=== PATIENT | female | born 1965 | race Caucasian/White ===

== ENCOUNTER 2022-02-05 00:10 | Emergency (ER) | payer OTHER ==
[2022-02-05] MEDS ORDERED: solu-MEDROL 125 MG, Sterile H2O 10 ml 2 ML IV ONE ×2 (00:25)
[2022-02-05] MEDS ORDERED: DUONEB 0.5-3 MG/3 ml Neb IH ONE ×2 (00:25→00:40)
[2022-02-05] MEDS ORDERED: HYDROCODONE-ACETAMIN 2.5-108/5 ML SOLUTION PO STA (00:26)
--- NOTE | 2022-02-05 00:28 | ERPHSYRPT ---
- History of Present Illness Time Seen by Provider: 02/05/22 00:14 Source: patient Exam Limitations: no limitations Physician History: 56 years old female with history of anxiety depression presented to the ER with chief complaint of cough since yesterday. Patient reported initially it was a dry hacking cough and today started to have productive of clear to yellow sputum moderate in amount. She is having coughing spells and feels short of breath. She did use her inhaler with no significant relief. Denies any chest pain or palpitations. No fever chills or sick contact reported. Timing/Duration: yesterday, gradual onset, worse Cough Quality/Degree: moderate, dry cough, productive cough, sputum Possible Cause: unknown cause Modifying Factors: Improves With: albuterol inhaler. Worsens With: coughing Associated Symptoms: cough, nasal congestion, nasal drainage, shortness of breath, sinus infection, sore throat, wheezing, No fever, No chest pain/soreness Allergies/Adverse Reactions: No Known Drug Allergies Allergy (Unverified 02/05/22 00:11) - Review of Systems Constitutional: No Symptoms Eyes: No Symptoms Ears, Nose, & Throat: Nose Congestion, Sinus Drainage Respiratory: Cough, Dyspnea, Wheezing Cardiac: No Symptoms Abdominal/Gastrointestinal: No Symptoms Genitourinary Symptoms: No Symptoms Musculoskeletal: No Symptoms Skin: No Symptoms Neurological: Headache Psychological: No Symptoms Endocrine: No Symptoms Hematologic/Lymphatic: No Symptoms - Nursing Vital Signs Nursing Vital Signs: Initial Vital Signs Temperature 97.9 F 02/05/22 00:11 Pulse Rate 116 H 02/05/22 00:11 Respiratory Rate 24 02/05/22 00:11 Blood Pressure 160/110 02/05/22 00:11 O2 Sat by Pulse Oximetry 95 02/05/22 00:11 Pain Scale Pain Intensity 4 - Physical Exam General Appearance: no apparent distress, alert Eye Exam: PERRL/EOMI, eyes nml inspection Ears, Nose, Throat Exam: TMs normal, pharyngeal erythema Neck Exam: normal inspection, supple, full range of motion Respiratory Exam: wheezing, No respiratory distress, No accessory muscle use Cardiovascular Exam: normal heart sounds, tachycardia Gastrointestinal/Abdomen Exam: soft, No tenderness Back Exam: normal inspection, normal range of motion Extremity Exam: normal inspection, normal range of motion Neurologic Exam: alert, oriented x 3, cooperative Skin Exam: normal color SpO2 Interpretation: normal SpO2: 97 O2 Delivery: Room Air - Course EKG Interpreted by Me: RATE ([id number]), Sinus Tach, NORMAL AXIS, NORMAL INTERVALS, NORMAL QRS Ordered Tests: Medication Summary Discontinued Medications Generic Name Dose Route Start Last Admin Trade Name [place] PRN Reason Stop Dose Admin Acetaminophen 650 mg 02/05/22 04:22 02/05/22 04:25 Acetaminophen 325 Mg Tablet PO 02/05/22 04:23 650 mg STAT STA Administration Acetaminophen Confirm 02/05/22 04:25 Acetaminophen 325 Mg Tablet Administered 02/05/22 04:26 Dose 650 mg .ROUTE .STK-MED ONE Hydrocodone Bitart/Acetaminophen 10 ml 02/05/22 00:26 02/05/22 00:38 Hydrocodone/Acetaminophen 5 Ml Udcup PO 02/05/22 00:27 10 ml STAT STA Administration Hydrocodone Bitart/Acetaminophen Confirm 02/05/22 00:34 Hydrocodone/Acetaminophen 5 Ml Udcup Administered 02/05/22 00:35 Dose 10 ml .ROUTE .STK-MED ONE Albuterol/Ipratropium 3 ml 02/05/22 00:25 02/05/22 00:42 Ipratropium/Albuterol Sulfate 3 Ml Ampul.Neb IH 02/05/22 00:26 3 ml STAT ONE Administration Albuterol/Ipratropium Confirm 02/05/22 00:40 Ipratropium/Albuterol Sulfate 3 Ml Ampul.Neb Administered 02/05/22 00:41 Dose 3 ml IH .STK-MED ONE Methylprednisolone Sodium 0 mg 02/05/22 00:25 02/05/22 00:38 Succinate 125 mg/ Sterile IV 02/05/22 00:26 125 mg Water 2 ml STAT ONE Administration Levofloxacin/Dextrose 750 mg in 150 mls @ 100 mls/hr 02/05/22 00:46 02/05/22 02:41 Levofloxacin 750mg/150ml D5w IV 02/05/22 02:15 Infused STAT STA Infusion Levofloxacin/Dextrose Confirm 02/05/22 00:49 Levofloxacin 750mg/150ml D5w Administered 02/05/22 00:50 Dose 750 mg in 150 mls @ ud IV .STK-MED ONE Magnesium Sulfate/Dextrose 100 mls @ 100 mls/hr 02/05/22 01:30 02/05/22 01:43 Magnesium 1 Gm / 100 Ml D5w IV 02/05/22 03:29 100 mls/hr Q1H CORA Administration Magnesium Sulfate/Dextrose Confirm 02/05/22 01:41 Magnesium 1 Gm / 100 Ml D5w Administered 02/05/22 01:42 Dose 200 mls @ ud IV .STK-MED ONE Methylprednisolone Sodium Succinate Confirm 02/05/22 00:34 Methylprednis Sod Succ 125 Mg/2 Ml Vial Administered 02/05/22 00:35 Dose 125 mg .ROUTE .STK-MED ONE Oseltamivir Phosphate 75 mg 02/05/22 04:22 02/05/22 04:26 Oseltamivir 75 Mg Cap PO 02/05/22 04:23 75 mg STAT ONE Administration Oseltamivir Phosphate Confirm 02/05/22 04:24 Oseltamivir 75 Mg Cap Administered 02/05/22 04:25 Dose 75 mg PO .STK-MED ONE Sterile Water Confirm 02/05/22 00:34 Water For Injection,Sterile 10 Ml Vial Administered 02/05/22 00:35 Dose 10 ml IJ .STK-MED ONE Lab/Rad Data: Laboratory Result Diagrams 02/05/22 00:40 02/05/22 00:40 Laboratory Results 02/05/22 02/05/22 02/05/22 Range/Units 03:43 01:35 00:40 WBC (4.0-10.5) K/mm3 RBC (4.1-5.4) M/mm3 Hgb (12.0-16.0) gm/dl Hct (35-47) % MCV (78-100) fl MCH (26-32) pg MCHC (32-36) g/dl RDW (11.5-14.0) % Plt Count (150-450) K/mm3 MPV (7.5-11.0) fl Gran % (36.0-66.0) % Eos # (Auto) (0-0.5) Absolute Lymphs (auto) (1.0-4.6) Absolute Monos (auto) (0.0-1.3) Lymphocytes % (24.0-44.0) % Monocytes % (0.0-12.0) % Eosinophils % (0.00-5.0) % Basophils % (0.0-0.4) % Absolute Granulocytes (1.4-6.9) Basophils # (0-0.4) D-Dimer 787 H* (215-500) ng/mL Sodium (137-145) mmol/L Potassium (3.5-5.1) mmol/L Chloride (98-107) mmol/L Carbon Dioxide (22-30) mmol/L Anion Gap (5-15) MEQ/L BUN (7-17) mg/dL Creatinine (0.52-1.04) mg/dL Estimated GFR ML/MIN Glucose (74-106) mg/dL Lactic Acid (0.4-2.0) Calcium (8.4-10.2) mg/dL Magnesium (1.6-2.3) mg/dL Total Bilirubin (0.2-1.3) mg/dL AST (14-36) U/L ALT (0-35) U/L Alkaline Phosphatase (38-126) U/L Troponin I < 0.012 (0.000-0.034) ng/mL NT-Pro-B Natriuret Pep (0-900) pg/mL Serum Total Protein (6.3-8.2) g/dL Albumin (3.5-5.0) g/dL Influenza Type A Ag POSITIVE (NEGATIVE) Influenza Type B Ag NEGATIVE (NEGATIVE) RSV (PCR) NEGATIVE (Negative) SARS-CoV-2 (PCR) NEGATIVE (NEGATIVE) 02/05/22 02/05/22 02/05/22 Range/Units 00:40 00:40 00:40 WBC (4.0-10.5) K/mm3 RBC (4.1-5.4) M/mm3 Hgb (12.0-16.0) gm/dl Hct (35-47) % MCV (78-100) fl MCH (26-32) pg MCHC (32-36) g/dl RDW (11.5-14.0) % Plt Count (150-450) K/mm3 MPV (7.5-11.0) fl Gran % (36.0-66.0) % Eos # (Auto) (0-0.5) Absolute Lymphs (auto) (1.0-4.6) Absolute Monos (auto) (0.0-1.3) Lymphocytes % (24.0-44.0) % Monocytes % (0.0-12.0) % Eosinophils % (0.00-5.0) % Basophils % (0.0-0.4) % Absolute Granulocytes (1.4-6.9) Basophils # (0-0.4) D-Dimer (215-500) ng/mL Sodium 138 (137-145) mmol/L Potassium 4.1 (3.5-5.1) mmol/L Chloride 104 (98-107) mmol/L Carbon Dioxide 23 (22-30) mmol/L Anion Gap 14.4 (5-15) MEQ/L BUN 12 (7-17) mg/dL Creatinine 0.57 (0.52-1.04) mg/dL Estimated GFR > 60.0 ML/MIN Glucose 112 H (74-106) mg/dL Lactic Acid (0.4-2.0) Calcium 8.6 (8.4-10.2) mg/dL Magnesium 1.5 L (1.6-2.3) mg/dL Total Bilirubin 0.40 (0.2-1.3) mg/dL AST 25 (14-36) U/L ALT 17 (0-35) U/L Alkaline Phosphatase 108 (38-126) U/L Troponin I < 0.012 (0.000-0.034) ng/mL NT-Pro-B Natriuret Pep 112 (0-900) pg/mL Serum Total Protein 6.9 (6.3-8.2) g/dL Albumin 3.8 (3.5-5.0) g/dL Influenza Type A Ag (NEGATIVE) Influenza Type B Ag (NEGATIVE) RSV (PCR) (Negative) SARS-CoV-2 (PCR) (NEGATIVE) 02/05/22 02/05/22 Range/Units 00:40 00:25 WBC 7.5 (4.0-10.5) K/mm3 RBC 4.03 L (4.1-5.4) M/mm3 Hgb 12.2 (12.0-16.0) gm/dl Hct 38.4 (35-47) % MCV 95.3 (78-100) fl MCH 30.3 (26-32) pg MCHC 31.8 L (32-36) g/dl RDW 13.3 (11.5-14.0) % Plt Count 260 (150-450) K/mm3 MPV 9.5 (7.5-11.0) fl Gran % 72.0 H (36.0-66.0) % Eos # (Auto) 0.15 (0-0.5) Absolute Lymphs (auto) 0.88 L (1.0-4.6) Absolute Monos (auto) 1.04 (0.0-1.3) Lymphocytes % 11.8 L (24.0-44.0) % Monocytes % 13.9 H (0.0-12.0) % Eosinophils % 2.0 (0.00-5.0) % Basophils % 0.3 (0.0-0.4) % Absolute Granulocytes 5.37 (1.4-6.9) Basophils # 0.02 (0-0.4) D-Dimer (215-500) ng/mL Sodium (137-145) mmol/L Potassium (3.5-5.1) mmol/L Chloride (98-107) mmol/L Carbon Dioxide (22-30) mmol/L Anion Gap (5-15) MEQ/L BUN (7-17) mg/dL Creatinine (0.52-1.04) mg/dL Estimated GFR ML/MIN Glucose (74-106) mg/dL Lactic Acid 1.6 (0.4-2.0) Calcium (8.4-10.2) mg/dL Magnesium (1.6-2.3) mg/dL Total Bilirubin (0.2-1.3) mg/dL AST (14-36) U/L ALT (0-35) U/L Alkaline Phosphatase (38-126) U/L Troponin I (0.000-0.034) ng/mL NT-Pro-B Natriuret Pep (0-900) pg/mL Serum Total Protein (6.3-8.2) g/dL Albumin (3.5-5.0) g/dL Influenza Type A Ag (NEGATIVE) Influenza Type B Ag (NEGATIVE) RSV (PCR) (Negative) SARS-CoV-2 (PCR) (NEGATIVE) - Progress Progress: improved Air Movement: fair Progress Note: 02/05/22 04:56 She is given symptomatic treatment for cough, on reevaluation feeling better. EKG did not show any acute ischemic changes and negative troponins. Mildly low magnesium and given replacement. Given steroid and DuoNeb along with a dose of antibiotic. Has elevated D-dimers and CTA is negative for PE. She has a positive influenza A and started on Tamiflu. Patient is much better on reevaluation and no signs of distress and is being discharged with outpatient follow-up. Blood Culture(s) Obtained: No Antibiotics given: Yes Counseled pt/family regarding: lab results, diagnosis, need for follow-up, rad results - Departure Departure Disposition: Home Clinical Impression: Influenza A, Pneumonia, Hypomagnesemia Condition: Stable Critical Care Time: No Referrals: MANINDER GRANDE NP [Primary Care Provider] - Follow up/PCP as directed (1-2 days for re evaluation) Instructions: Flu, Adult (DC), Pneumonia, Adult (DC) Additional Instructions: increased hydration, tylenol/ibuprofen as needed for fever / bodyaches. follow up with PCP for re evaluation in 2 days . return to ER for wowrsening cough/Shortness of breath/persistent high grade fever etc. Prescriptions: Prednisone 20 mg [Deltasone 20 mg] 60 mg PO DAILY 3 Days #9 tablet Oseltamivir 75 mg [Tamiflu 75MG Capsule] 75 mg PO BID #9 cap Azithromycin 250 mg [Zithromax 250 MG TABLET] 250 mg PO ZPACK #6 tablet
[2022-02-05] MEDS ORDERED: Sterile H2O 10 ml IJ ONE (00:34)
[2022-02-05] MEDS ORDERED: HYDROCODONE-ACETAMIN 2.5-108/5 ML SOLUTION ONE (00:34)
[2022-02-05] MEDS ORDERED: solu-MEDROL ONE (00:34)
[2022-02-05] MEDS ORDERED: LEVOFLOXACIN 750MG/150ML D5W 750 MG/150 ML BAG IV STA (00:46)
[2022-02-05] MEDS ORDERED: LEVOFLOXACIN 750MG/150ML D5W 750 MG/150 ML BAG IV ONE (00:49)
[2022-02-05 00:53] LABS: Absolute Neutrophil Ct (ANC) 5.37 (1.4-6.9); Basophil (Absolute #) 0.02 (0-0.4); Eosinophil (Absolute #) 0.15 (0-0.5); Hematocrit 38.4 % (35-47); Hemoglobin 12.2 gm/dl (12.0-16.0); Lymphocyte (Absolute #) 0.88 (1.0-4.6); Lymphocytes % 11.8 % (24.0-44.0); Mean Cell Volume 95.3 fl (78-100); Mean Corpuscular Hemoglobin 30.3 pg (26-32); Mean Corpuscular Hgb Concent. 31.8 g/dl (32-36); Mean Platelet Volume 9.5 fl (7.5-11.0); Monocyte (Absolute #) 1.04 (0.0-1.3); Monocytes % 13.9 % (0.0-12.0); Platelet Count 260 K/mm3 (150-450); Red Blood Count 4.03 M/mm3 (4.1-5.4); Red Cell Distribution Width 13.3 % (11.5-14.0); White Blood Count 7.5 K/mm3 (4.0-10.5)
[2022-02-05 01:28] LABS: ALBUMIN 3.8 g/dL (3.5-5.0); ALKALINE PHOSPHATASE 108 U/L (38-126); ANION GAP 14.4 MEQ/L (5-15); BLOOD UREA NITROGEN 12 mg/dL (7-17); CHLORIDE 104 mmol/L (98-107); Calcium 8.6 mg/dL (8.4-10.2); Carbon Dioxide 23 mmol/L (22-30); Creatinine 1 0.57 mg/dL (0.52-1.04); EST GLOMERULAR FILTRATION RATE > 60.0 ML/MIN; Glucose 112 mg/dL (74-106); MAGNESIUM 1.5 mg/dL (1.6-2.3); Potassium 4.1 mmol/L (3.5-5.1); SGOT/AST 25 U/L (14-36); SGPT/ALT 17 U/L (0-35); SODIUM 138 mmol/L (137-145); Total Protein 6.9 g/dL (6.3-8.2)
[2022-02-05] MEDS ORDERED: Magnesium 1 Gm / 100 Ml D5W*** 200 ML IV ONE (01:41)
[2022-02-05] MEDS: Magnesium 1 Gm / 100 Ml D5W*** 100 ML IV SCH ×2 (01:41→01:43)
[2022-02-05 02:13] LABS: INFLUENZA B NEGATIVE (NEGATIVE); RESPIRATORY SYNCTIAL VIRUS NEGATIVE (Negative); SARS-CoV-2 Xpert Express NEGATIVE (NEGATIVE)
[2022-02-05 02:17] LABS: INFLUENZA A POSITIVE (NEGATIVE)
[2022-02-05] MEDS ORDERED: TYLENOL 325 MG PO STA (04:22)
[2022-02-05] MEDS ORDERED: Tamiflu 75MG Capsule PO ONE ×2 (04:22→04:24)
[2022-02-05] MEDS ORDERED: TYLENOL 325 MG ONE (04:25)
[2022-02-05 05:00] VITALS: BP 134/85; PULSE 96
[2022-02-05 05:01] VITALS: O2SAT 97
--- NOTE | 2022-02-05 07:10 | XRAY ---
Indication: Cough. Elevated d-dimer. Multiple contiguous axial images obtained through the chest using 100 cc Isovue 370 contrast and PE protocol. Comparison: None There is good opacification of the pulmonary arteries to include the lobar and segmental branches. No pulmonary embolus. Heart not enlarged. Aorta is normal in course and caliber. No pathologic mediastinal/hilar lymphadenopathy. Lungs demonstrates minimal bilateral dependent atelectasis. No suspicious pulmonary mass, infiltrate, effusion, or pneumothorax. Bony thorax intact. Limited upper abdomen demonstrates a few centimeter/subcentimeter mid posterior lymph nodes with mesenteric stranding favoring mesenteric adenitis. Incidental mild fatty liver and 1.7 cm gallstone. Impression: 1. Negative pulmonary embolus. No acute cardiopulmonary abnormalities. 2. Incidental small midabdomen mesenteric nodes with mesenteric stranding favoring mesenteric adenitis. 3. Incidental fatty liver and 1.7 cm gallstone. Comment: Preliminary interpretation made by [facility]. No critical discrepancy.
--- NOTE | 2022-02-05 07:12 | XRAY ---
Indication: Cough. Comparison: December 12, 2018. Portable chest remains clear. Heart not enlarged. Bony thorax intact. No new/acute findings.
== END 2022-02-05 05:09 | disposition home or self-care (01) ==
LOC: ED 00:10
DX: J10.00 Influenza due to other identified influenza virus with unspecified type of pneumonia (principal); E83.42 Hypomagnesemia; R05.1 Acute cough; R06.02 Shortness of breath; R09.81 Nasal congestion; J02.9 Acute pharyngitis, unspecified; F41.8 Other specified anxiety disorders; Z79.52 Long term (current) use of systemic steroids
CPT/HCPCS: 0241U; 36000; 36415; 71045; 71260; 80053; 83605; 83735; 83880; 84484; 85025; 85379; 93005; 94640; 96360; 96374; 99285; J1956; J2930; J3475; A9270-GY

== ENCOUNTER 2024-01-11 21:30 | Emergency (ER) | payer OTHER ==
[2024-01-11 22:03] VITALS: TEMP 98.5; O2SAT 97
--- NOTE | 2024-01-11 22:25 | ERPHSYRPT ---
- History of Present Illness Time Seen by Provider: 01/11/24 22:15 Source: patient Exam Limitations: no limitations Patient Subjective Stated Complaint: hypertension, fatigue Triage Nursing Assessment: pt ambulatory to bed by self with steady gait, pt alert and oriented x3, skin pwd, pt c/o htn and fatigue, bp was 200/100s at home prior to arrival, pt current bp is 179/103, pt was recently diagnosed with new onset a fib, pt has first appt with Dr. Mascorro on 01/03 and was prescribed metoprolol and eliquis, heart rate controlled at the time, pt denies any pain, pt has f/u appt on Sunday with Dr. Mascroro. Physician History: 58yo f presents via private vehicle for HTN and fatigue. Pt states she was at her sister's house seated at the kitchen table when she noticed that she was feeling fatigued. Pt states she decided to check her BP there and it was 170s systolic, which she states her BP has never been that high. 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 Pt currently denies any cp, vision changes, n/v, NAIK. Timing/Duration: today Severity: mild Associated Symptoms: No nausea, No vomiting, No abdominal pain, No chills, No chest pain, No fever, No headaches, No syncope Allergies/Adverse Reactions: No Known Drug Allergies Allergy (Unverified 02/05/22 00:11) Home Medications: Apixaban [Eliquis] 5 mg PO BID 01/11/24 [History] Estradiol [Estrace] 1 mg PO DAILY 01/11/24 [History] Metoprolol Tartrate 25 mg [Lopressor 25MG Tab] 25 mg PO BID 01/11/24 [History] Tirzepatide [Mounjaro] 12.5 mg SQ WEEKLY 01/11/24 [History] Zolpidem Tartrate 10 mg [Ambien 10 MG] 10 mg PO DAILY 01/11/24 [History] Hx Tetanus, Diphtheria Vaccination/Date Given: No Hx Influenza Vaccination/Date Given: No Hx Pneumococcal Vaccination/Date Given: No Immunizations Up to Date: No Travel Risk - International Travel Have you traveled outside of the country in past 3 weeks: No - Emerging Infectious Disease Are you exhibiting symptoms associated with any current EIDs: No - Review of Systems Constitutional: Fatigue Respiratory: No Symptoms Cardiac: No Symptoms Abdominal/Gastrointestinal: No Symptoms Neurological: No Symptoms - Past Medical History Pertinent Past Medical History: Yes Neurological History: Migraines ENT History: No Pertinent History Cardiac History: Arrhythmia Respiratory History: No Pertinent History Endocrine Medical History: No Pertinent History Musculoskeletal History: No Pertinent History GI Medical History: Esophageal Disorder, GERD History: No Pertinent History Psycho-Social History: Depression Female Reproductive Disorders: No Pertinent History Other Medical History: afib - Past Surgical History Past Surgical History: Yes Neuro Surgical History: No Pertinent History Cardiac: No Pertinent History Respiratory: No Pertinent History Gastrointestinal: Other Genitourinary: No Pertinent History Musculoskeletal: Orthopedic Surgery Female Surgical History: Hysterectomy Other Surgical History: ESOPHAGEAL STRETCHED - Social History Smoking Status: Never smoker Exposure to second hand smoke: No Drug Use: none Patient Lives Alone: No - Nursing Vital Signs Nursing Vital Signs: Initial Vital Signs Temperature 98.5 F 01/11/24 21:47 Pulse Rate 99 H 01/11/24 21:47 Respiratory Rate 19 01/11/24 21:47 Blood Pressure 179/103 01/11/24 21:47 O2 Sat by Pulse Oximetry 97 01/11/24 21:47 Pain Scale Pain Intensity 0 - Physical Exam General Appearance: no apparent distress, alert Eye Exam: PERRL/EOMI Respiratory Exam: normal breath sounds, lungs clear, airway intact, No chest tenderness, No respiratory distress Cardiovascular Exam: tachycardia, irregular, capillary refill <2 sec, No murmur, No edema Neurologic Exam: alert, oriented x 3, cooperative, 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, normal mood/affect, nml station & gait, sensation nml, No motor deficits, No sensory deficit SpO2 Interpretation: normal SpO2: 97 O2 Delivery: Room Air - Course EKG Interpreted by Me: RATE (91), A-fib, Other (no ST changes that would suggest ischemia; qtcb 467) Ordered Tests: Active Orders 24 hr Category Date Time Status EKG-ER Only STAT Care 01/11/24 22:25 Active IV Insertion STAT Care 01/11/24 22:30 Active CBC W DIFF Stat Lab 01/11/24 22:40 Completed CMP Stat Lab 01/11/24 22:40 Completed TROPONIN Q4H Lab 01/11/24 22:40 Completed TROPONIN Q4H Lab 01/12/24 02:30 Ordered TROPONIN Q4H Lab 01/12/24 06:30 Ordered TROPONIN Stat Lab 01/12/24 00:34 Received Medication Summary Discontinued Medications Generic Name Dose Route Start Last Admin Trade Name Freq PRN Reason Stop Dose Admin Sodium Chloride 1,000 mls @ 999 mls/hr 01/11/24 22:25 01/11/24 22:42 Sodium Chloride 0.9% 1000 Ml IV 01/11/24 23:25 Not Given .Q1H1M STA Lab/Rad Data: Laboratory Result Diagrams 01/11/24 22:40 01/11/24 22:40 Laboratory Results 01/11/24 01/11/24 01/11/24 Range/Units 22:45 22:40 22:40 WBC (4.0-10.5) x10^3/uL RBC (4.1-5.4) x10^6/uL Hgb (12.0-16.0) g/dL Hct (35-47) % MCV (78-100) fL MCH (26-32) pg MCHC (32-36) g/dL RDW (11.5-14.0) % Plt Count (150-450) x10^3/uL MPV (7.5-11.0) fL Gran % (36.0-66.0) % Immature Gran % (Auto) (0.00-0.4) % Nucleat RBC Rel Count (0.00-0.1) % Eos # (Auto) (0-0.5) x10^3/uL Immature Gran # (Auto) (0.00-0.03) x10^3u/L Absolute Lymphs (auto) (1.0-4.6) x10^3/uL Absolute Monos (auto) (0.0-1.3) x10^3/uL Absolute Nucleated RBC (0.00-0.01) x10^3u/L Lymphocytes % (24.0-44.0) % Monocytes % (0.0-12.0) % Eosinophils % (0.00-5.0) % Basophils % (0.0-0.4) % Absolute Granulocytes (1.4-6.9) x10^3/uL Basophils # (0-0.4) x10^3/uL Sodium 139 (135-145) mmol/L Potassium 3.7 (3.5-5.1) mmol/L Chloride 109 H (98-107) mmol/L Carbon Dioxide 25 (22-30) mmol/L Anion Gap 9.0 (5-15) MEQ/L BUN 14 (7-17) mg/dL Creatinine 0.46 L (0.52-1.04) mg/dL Estimated GFR 112.2 ML/MIN Glucose 125 H (74-106) mg/dL Calcium 8.4 (8.4-10.2) mg/dL Total Bilirubin 0.40 (0.2-1.3) mg/dL AST 20 (14-36) U/L ALT 20 (0-35) U/L Alkaline Phosphatase 101 (38-126) U/L Troponin I < 0.012 (0.000-0.034) ng/mL Serum Total Protein 6.1 L (6.3-8.2) g/dL Albumin 3.2 L (3.5-5.0) g/dL Influenza Type A Ag NEGATIVE (NEGATIVE) Influenza Type B Ag NEGATIVE (NEGATIVE) RSV (PCR) NEGATIVE (NEGATIVE) SARS-CoV-2 (PCR) NEGATIVE (NEGATIVE) 01/11/24 Range/Units 22:40 WBC 9.6 (4.0-10.5) x10^3/uL RBC 4.00 L (4.1-5.4) x10^6/uL Hgb 11.8 L (12.0-16.0) g/dL Hct 37.1 (35-47) % MCV 92.8 (78-100) fL MCH 29.5 (26-32) pg MCHC 31.8 L (32-36) g/dL RDW 13.1 (11.5-14.0) % Plt Count 270 (150-450) x10^3/uL MPV 9.5 (7.5-11.0) fL Gran % 48.1 (36.0-66.0) % Immature Gran % (Auto) 0.2 (0.00-0.4) % Nucleat RBC Rel Count 0.0 (0.00-0.1) % Eos # (Auto) 0.14 (0-0.5) x10^3/uL Immature Gran # (Auto) 0.02 (0.00-0.03) x10^3u/L Absolute Lymphs (auto) 3.88 (1.0-4.6) x10^3/uL Absolute Monos (auto) 0.90 (0.0-1.3) x10^3/uL Absolute Nucleated RBC 0.00 (0.00-0.01) x10^3u/L Lymphocytes % 40.4 (24.0-44.0) % Monocytes % 9.4 (0.0-12.0) % Eosinophils % 1.5 (0.00-5.0) % Basophils % 0.4 (0.0-0.4) % Absolute Granulocytes 4.63 (1.4-6.9) x10^3/uL Basophils # 0.04 (0-0.4) x10^3/uL Sodium (135-145) mmol/L Potassium (3.5-5.1) mmol/L Chloride (98-107) mmol/L Carbon Dioxide (22-30) mmol/L Anion Gap (5-15) MEQ/L BUN (7-17) mg/dL Creatinine (0.52-1.04) mg/dL Estimated GFR ML/MIN Glucose (74-106) mg/dL Calcium (8.4-10.2) mg/dL Total Bilirubin (0.2-1.3) mg/dL AST (14-36) U/L ALT (0-35) U/L Alkaline Phosphatase (38-126) U/L Troponin I (0.000-0.034) ng/mL Serum Total Protein (6.3-8.2) g/dL Albumin (3.5-5.0) g/dL Influenza Type A Ag (NEGATIVE) Influenza Type B Ag (NEGATIVE) RSV (PCR) (NEGATIVE) SARS-CoV-2 (PCR) (NEGATIVE) - Progress Progress: improved Progress Note: 01/12/24 00:00 pt re-examined, lab workup largely unremarkable ekg showed afib, rate controlled pt resting comfortably, states she feels tired but otherwise is asymptomatic most recent bp 142/93 01/12/24 01:26 received call from lab stating machine that runs troponin labs is down, they are unable to run pt's 2nd trop I discussed lab issue w/ pt who is requesting to leave, I believe that is appropriate at this time given controlled bp, absence of cardiac sx, largely unremarkable lab w/u Pt fatigue likely related to medication side effect after recently starting beta jimmy Pt has appt scheduled w/ warehouse assembly worker Dr Rebolledo on 01/14/24 Plan for dc home Instructed to return to ED if: cp develops, change in mental status, NAIK devel ops, vision changes develop, begin to have nausea/vomiting Instructed pt to continue metoprolol and eliquis follow up outpatient w/ cardiology Counseled pt/family regarding: lab results, diagnosis, need for follow-up Medical Desision Making - Diagnostic Testing Diagnostic test were ordered, analyzed, and reviewed by me: No - Risk of complications Minimal Risk: Minimal risk of morbidity - Departure Departure Disposition: Home Clinical Impression: Fatigue Qualifiers: Fatigue type: unspecified Qualified Code(s): R53.83 - Other fatigue Afib Qualifiers: Atrial fibrillation type: persistent (not longstanding) Qualified Code(s): I48.19 - Other persistent atrial fibrillation Condition: Stable Critical Care Time: No Referrals: MANINDER GRANDE NP [Primary Care Provider] - Follow up/PCP as directed Additional Instructions: Plan for dc home Instructed to return to ED if: cp develops, change in mental status, NAIK develops, vision changes develop, begin to have nausea/vomiting Instructed pt to continue metoprolol and eliquis follow up outpatient w/ cardiology
[2024-01-11] MEDS: Sodium Chloride 0.9% 1000 ML 1,000 ML IV STA (22:42)
[2024-01-11 22:47] LABS: Absolute Neutrophil Ct (ANC) 4.63 x10^3/uL (1.4-6.9); BASOPHIL % 0.4 % (0.0-0.4); Basophil (Absolute #) 0.04 x10^3/uL (0-0.4); Eosinophil % 1.5 % (0.00-5.0); Eosinophil (Absolute #) 0.14 x10^3/uL (0-0.5); Hematocrit 37.1 % (35-47); Hemoglobin 11.8 g/dL (12.0-16.0); IMMATURE GRAN # 0.02 x10^3u/L (0.00-0.03); IMMATURE GRAN % 0.2 % (0.00-0.4); Lymphocyte (Absolute #) 3.88 x10^3/uL (1.0-4.6); Lymphocytes % 40.4 % (24.0-44.0); Mean Cell Volume 92.8 fL (78-100); Mean Corpuscular Hemoglobin 29.5 pg (26-32); Mean Corpuscular Hgb Concent. 31.8 g/dL (32-36); Mean Platelet Volume 9.5 fL (7.5-11.0); Monocytes % 9.4 % (0.0-12.0); Neutrophil % 48.1 % (36.0-66.0); Platelet Count 270 x10^3/uL (150-450); Red Cell Distribution Width 13.1 % (11.5-14.0); White Blood Count 9.6 x10^3/uL (4.0-10.5)
[2024-01-11 23:02] LABS: ALBUMIN 3.2 g/dL (3.5-5.0); BILIRUBIN,TOTAL 0.4 mg/dL (0.2-1.3); Calcium 8.4 mg/dL (8.4-10.2); Creatinine 1 0.46 mg/dL (0.52-1.04); EST GLOMERULAR FILTRATION RATE 112.2 ML/MIN; Potassium 3.7 mmol/L (3.5-5.1); Total Protein 6.1 g/dL (6.3-8.2)
[2024-01-11 23:33] LABS: INFLUENZA A NEGATIVE (NEGATIVE); INFLUENZA B NEGATIVE (NEGATIVE); RESPIRATORY SYNCTIAL VIRUS NEGATIVE (NEGATIVE); SARS-CoV-2 Xpert Express NEGATIVE (NEGATIVE)
[2024-01-12 01:31] VITALS: BP 145/86; PULSE 91; RESP 20
== END 2024-01-12 01:45 | disposition home or self-care (01) ==
LOC: ED 21:30
DX: R53.83 Other fatigue (principal); I48.19 Other persistent atrial fibrillation; Z79.01 Long term (current) use of anticoagulants; Z79.85 Long-term (current) use of injectable non-insulin antidiabetic drugs; Z79.899 Other long term (current) drug therapy
CPT/HCPCS: 0241U; 36000; 36415; 80053; 84484; 85025; 93005; 99284